=== PATIENT | male | born 1975 | race Hispanic/Latino ===

== ENCOUNTER 2019-09-09 03:34 | Emergency (ER) | payer SELFPAY ==
[2019-09-09] MEDS ORDERED: NA CHLORIDE 0.9% 1,000 ML ONE (04:31)
[2019-09-09] MEDS ORDERED: MORPHINE 4 MG/ML SYR ONE (04:31)
[2019-09-09] MEDS ORDERED: ONDANSETRON 4 MG/2 ML VIAL ONE (04:31)
[2019-09-09] MEDS ORDERED: FAMOTIDINE 20 MG/2 ML VIAL IV ONE (04:31)
[2019-09-09 04:52] LABS: Absolute Lymphocytes (CBC) 3.1 K/uL (0.7-4.9); Basophils % 1.2 % (0-1.3); Hematocrit 45.4 % (39.6-49.0); Lymphocytes % 30.8 % (15.3-44.8); MPV 7.7 fL (7.6-11.3); RBC Red Blood Cell Count 5.26 M/uL (4.33-5.43)
[2019-09-09 04:58] LABS: Albumin 3.5 g/dL (3.4-5.0); BUN Blood Urea Nitrogen 13 mg/dL (7-18); Bicarbonate 26 mmol/L (21-32); Glucose Level 127 mg/dL (74-106); Lipase 98 U/L (73-393); Sodium Level 139 mmol/L (136-145)
[2019-09-09 05:17] LABS: ALT/SGPT 35 U/L (12-78); AST/SGOT 24 U/L (15-37); Alkaline Phosphatase 61 U/L (45-117); Bilirubin Total 0.5 mg/dL (0.2-1.0); Potassium 3.8 mmol/L (3.5-5.1)
[2019-09-09 05:18] LABS: Bilirubin Direct < 0.1 mg/dL (0-0.2); Protein, Total 7.5 g/dL (6.4-8.2)
[2019-09-09 06:48] LABS: Urine Blood TRACE (NEG); Urine Glucose NEGATIVE (NEG); Urine Protein NEGATIVE (NEG); Urine Specific Gravity 1.025 (1.005-1.030); Urine pH 5.5 (5.0-7.0)
--- NOTE | 2019-09-09 07:30 | ER ---
Nurse's Notes [facility] Name: Dayton Colvin Jr Age: 44 yrs Sex: Male : 1975 Arrival Date: 09/09/2019 Time: 03:37 Bed 6 Private MD: Diagnosis: Cholelithiasis Presentation: 09/08 04:07 Chief complaint: Patient states: WITH HISTORY OF GALL STONES. COMPLAINING OF RUQ PAIN rv STARTED TWO HOURS AGO. 10/10 PAIN SCALE, DESCRIBED SHARP CONTINUOUS PAIN. ALSO COMPLAINING OF BACK PAIN. DENIES NAUSEA AND VOMITING. Coronavirus screen: Proceed with normal triage. Ebola Screen: No symptoms or risks identified at this time. Initial Sepsis Screen: Does the patient meet any 2 criteria? No. Patient's initial sepsis screen is negative. Does the patient have a suspected source of infection? No. Patient's initial sepsis screen is negative. Risk Assessment: Do you want to hurt yourself or someone else? Patient reports no desire to harm self or others. Onset of symptoms was September 09, 2019 at 02:00. 04:07 Method Of Arrival: Ambulatory rv 04:07 Acuity: SOPHIE 3 rv Triage Assessment: 04:09 General: Appears uncomfortable, ill, Behavior is calm, cooperative. Pain: Complains of rv pain in right upper quadrant Pain currently is 10 out of 10 on a pain scale. Quality of pain is described as sharp, Pain began 2 hours ago. Is continuous. EENT: No signs and/or symptoms were reported regarding the EENT system. Neuro: Level of Consciousness is awake, alert, obeys commands, Oriented to person, place, time, situation. Cardiovascular: Patient's skin is warm and dry. Respiratory: Airway is patent Respiratory effort is even, unlabored. GI: Abdomen is round non-distended, Bowel sounds present X 4 quads. Reports upper abdominal pain. Derm: Skin is intact. Historical: - Allergies: 04:09 No Known Allergies; rv - Home Meds: 04:09 None [Active]; rv - PMHx: 04:09 Cholelithiasis; rv - PSHx: 04:09 None; rv - Immunization history:: Adult Immunizations up to date. - Social history:: Smoking status: Patient denies any tobacco usage or history of. - Family history:: not pertinent. Screenin:11 Abuse screen: Denies threats or abuse. Denies injuries from another. Nutritional rv screening: No deficits noted. Tuberculosis screening: No symptoms or risk factors identified. Fall Risk None identified. Assessment: 05:00 Reassessment: Patient and/or family updated on plan of care and expected duration. Pain rv level reassessed. Patient is alert, oriented x 3, equal unlabored respirations, skin warm/dry/pink. Patient denies pain at this time. Patient states feeling better. Patient states symptoms have improved. 05:00 Pain: Denies pain. rv 07:30 Reassessment: Patient and/or family updated on plan of care and expected duration. Pain em level reassessed. Patient is alert, oriented x 3, equal unlabored respirations, skin warm/dry/pink. Patient states feeling better. Patient states symptoms have improved. Vital Signs: 04:05 BP 147 / 88; Pulse 84; Resp 16; Pulse Ox 99% on R/A; mt 05:00 BP 112 / 70; Pulse 99; Resp 16; Pulse Ox 88% on R/A; rv 05:07 Pulse Ox 99% on 2 lpm NC; rv 06:00 BP 127 / 83; Pulse 98; Resp 17; Temp 98; Pulse Ox 99% on R/A; rv 07:30 BP 118 / 76; Pulse 87; Resp 18; Pulse Ox 99% on R/A; em ED Course: 03:37 Patient arrived in ED. cl3 03:41 Brandt Tavares MD is Attending Physician. tera 04:07 Donald Haskins, BENOIT is Primary Nurse. rv 04:09 Triage completed. rv 04:11 Arm band placed on Patient placed in the treatment room, on a stretcher, Patient rv notified of wait time. 04:11 Patient has correct armband on for positive identification. Bed in low position. Call rv light in reach. Pulse ox on. NIBP on. 04:15 Inserted saline lock: 18 gauge in left antecubital area, using aseptic technique. Blood mt collected. 06:18 Chest Single View XRAY In Process Unspecified. EDMS 06:39 No provider procedures requiring assistance completed. rv 06:54 CT Abd/Pelvis - PO and IV Contrast In Process Unspecified. EDMS 07:30 Minor Parker MD is Referral Physician. tera 07:49 IV discontinued, intact, bleeding controlled, No redness/swelling at site. Pressure em dressing applied. Administered Medications: 04:29 Drug: Pepcid 20 mg Route: IVP; Site: left antecubital; rv 05:03 Follow up: Response: No adverse reaction rv 04:29 Drug: morphine 4 mg {Note: RASS 0.} Route: IVP; Site: left antecubital; rv 05:03 Follow up: Response: No adverse reaction; Marked relief of symptoms; Pain is decreased; rv RASS: Light sedation (-2) 04:29 Drug: Zofran (Ondansetron) 4 mg Route: IVP; Site: left antecubital; rv 05:03 Follow up: Response: No adverse reaction rv 04:30 Drug: NS 0.9% 1000 ml Route: IV; Rate: 1 bolus; Site: left antecubital; rv 07:13 Follow up: IV Status: Completed infusion; IV Intake: 1000ml rv 07:47 Drug: Amoxicillin 500 mg Route: PO; em 07:47 Follow up: Response: Medication administered at discharge. em Intake: 07:13 IV: 1000ml; Total: 1000ml. rv Outcome: 07:30 Discharge ordered by . [facility] 07:49 Discharged to home ambulatory. em 07:49 Condition: good 07:49 Discharge instructions given to patient, Instructed on discharge instructions, follow up and referral plans. medication usage, Demonstrated understanding of instructions, follow-up care, medications, Prescriptions given X 2. 07:51 Patient left the ED. em Signatures: Dispatcher [employer] Brandt Barfield MD MD cha Munoz, Edgar, RN RN em Thompson, Moriah mt Vicente, Ronaldo, RN RN Laverne Miller cl3 Corrections: (The following items were deleted from the chart) 04:13 04:07 Chief complaint: Patient states: WITH HISTORY OF GALL STONES. COMPLAINING OF LUQ rv PAIN STARTED TWO HOURS AGO. 10/10 PAIN SCALE, DESCRIBED SHARP CONTINUOUS PAIN. ALSO COMPLAINING OF BACK PAIN. DENIES NAUSEA AND VOMITING. rv
--- NOTE | 2019-09-09 07:31 | EDPHYS ---
Physician Documentation [facility] Name: Dayton Colvin Jr Age: 44 yrs Sex: Male : 1975 Arrival Date: 09/09/2019 Time: 03:37 Bed 6 Private MD: ED Physician Brandt Tavares HPI: 09/08 04:21 This 44 yrs old Male presents to ER via Ambulatory with complaints of Low Back tera Pain. 04:21 The patient presents with pain that is acute, with no known mechanism of injury. tera Historical: - Allergies: 04:09 No Known Allergies; rv - Home Meds: 04:09 None [Active]; rv - PMHx: 04:09 Cholelithiasis; rv - PSHx: 04:09 None; rv - Immunization history:: Adult Immunizations up to date. - Social history:: Smoking status: Patient denies any tobacco usage or history of. - Family history:: not pertinent. ROS: 04:21 Constitutional: Negative for fever, chills, and weight loss, Eyes: Negative for injury, tera pain, redness, and discharge, ENT: Negative for injury, pain, and discharge, Neck: Negative for injury, pain, and swelling, Cardiovascular: Negative for chest pain, palpitations, and edema, Respiratory: Negative for shortness of breath, cough, wheezing, and pleuritic chest pain, Back: Negative for injury and pain, : Negative for injury, bleeding, discharge, and swelling, MS/Extremity: Negative for injury and deformity, Skin: Negative for injury, rash, and discoloration, Neuro: Negative for headache, weakness, numbness, tingling, and seizure, Psych: Negative for depression, anxiety, suicide ideation, homicidal ideation, and hallucinations, Allergy/Immunology: Negative for hives, rash, and allergies, Endocrine: Negative for neck swelling, polydipsia, polyuria, polyphagia, and marked weight changes, Hematologic/Lymphatic: Negative for swollen nodes, abnormal bleeding, and unusual bruising. 04:21 Abdomen/GI: Positive for abdominal pain, of the epigastric area and right upper quadrant. Exam: 04:21 Constitutional: This is a well developed, well nourished patient who is awake, alert, tera and in no acute distress. Head/Face: Normocephalic, atraumatic. Eyes: Pupils equal round and reactive to light, extra-ocular motions intact. Lids and lashes normal. Conjunctiva and sclera are non-icteric and not injected. Cornea within normal limits. Periorbital areas with no swelling, redness, or edema. ENT: Nares patent. No nasal discharge, no septal abnormalities noted. Tympanic membranes are normal and external auditory canals are clear. Oropharynx with no redness, swelling, or masses, exudates, or evidence of obstruction, uvula midline. Mucous membranes moist. Neck: Trachea midline, no thyromegaly or masses palpated, and no cervical lymphadenopathy. Supple, full range of motion without nuchal rigidity, or vertebral point tenderness. No Meningismus. Chest/axilla: Normal chest wall appearance and motion. Nontender with no deformity. No lesions are appreciated. Cardiovascular: Regular rate and rhythm with a normal S1 and S2. No gallops, murmurs, or rubs. Normal PMI, no JVD. No pulse deficits. Respiratory: Lungs have equal breath sounds bilaterally, clear to auscultation and percussion. No rales, rhonchi or wheezes noted. No increased work of breathing, no retractions or nasal flaring. Back: No spinal tenderness. No costovertebral tenderness. Full range of motion. Male : Normal genitalia with no discharge or lesions. Skin: Warm, dry with normal turgor. Normal color with no rashes, no lesions, and no evidence of cellulitis. MS/ Extremity: Pulses equal, no cyanosis. Neurovascular intact. Full, normal range of motion. Neuro: Awake and alert, GCS 15, oriented to person, place, time, and situation. Cranial nerves II-XII grossly intact. Motor strength 5/5 in all extremities. Sensory grossly intact. Cerebellar exam normal. Normal gait. Psych: Awake, alert, with orientation to person, place and time. Behavior, mood, and affect are within normal limits. 04:21 Abdomen/GI: Inspection: abdomen appears normal, Bowel sounds: normal, Palpation: moderate abdominal tenderness, in the epigastric area and right upper quadrant, Liver: is firm, Hernia: not appreciated. Vital Signs: 04:05 BP 147 / 88; Pulse 84; Resp 16; Pulse Ox 99% on R/A; mt 05:00 BP 112 / 70; Pulse 99; Resp 16; Pulse Ox 88% on R/A; rv 05:07 Pulse Ox 99% on 2 lpm NC; rv 06:00 BP 127 / 83; Pulse 98; Resp 17; Temp 98; Pulse Ox 99% on R/A; rv 07:30 BP 118 / 76; Pulse 87; Resp 18; Pulse Ox 99% on R/A; em MDM: 04:12 [facility] 04[facility]22 Data reviewed: vital signs, nurses notes, lab test result(s), radiologic studies, CT tera scan, plain films. 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 rate is 84 beats/min, rhythm is normal sinus rhythm, Pulse oximetry: on room air is 99 %. Test interpretation: by ED physician or midlevel provider: plain radiologic studies. Counseling: I had a detailed discussion with the patient and/or guardian regarding: the historical points, exam findings, and any diagnostic results supporting the discharge/admit diagnosis, lab results, radiology results. Medication response: Zofran markedly relieved the patient's nausea. 07:15 Differential diagnosis: Cholelithiasis Obesity cholecystitis, Cholelithiasis, tera diverticulitis, gastritis, gastroesophageal reflux disease, non-specific abd pain, pancreatitis, Peptic Ulcer Disease. Response to treatment: the patient's symptoms have markedly improved after treatment, patient is well hydrated. Awaiting: CT scan results, waiting for read to cross over. 07:26 ED course: pain improved, ct no evidence of acute cholecystitis, labs normal, dw dr tera evans, will follow up, pt understands. 09/08 04:11 Order name: Basic Metabolic Panel; Complete Time: 05:51 09/08 04:11 Order name: CBC with Diff; Complete Time: 05:51 09/08 04:11 Order name: Hepatic Function; Complete Time: 05:51 09/08 04:11 Order name: Lipase; Complete Time: 05:51 09/08 04:21 Order name: Chest Single View XRAY [facility] 09/08 06:33 Order name: Urine Dipstick--Ancillary (enter results); Complete Time: 07:14 ar5 09/08 04:11 Order name: IV Saline Lock; Complete Time: 04:14 09/08 04:11 Order name: Labs collected and sent; Complete Time: 04:14 09/08 04:21 Order name: CT Abd/Pelvis - PO and IV Contrast [facility] 09/08 06:25 Order name: Urine Dipstick-Ancillary (obtain specimen); Complete Time: 06:30 [facility] Administered Medications: 04:29 Drug: Pepcid 20 mg Route: IVP; Site: left antecubital; rv 05:03 Follow up: Response: No adverse reaction rv 04:29 Drug: morphine 4 mg {Note: RASS 0.} Route: IVP; Site: left antecubital; rv 05:03 Follow up: Response: No adverse reaction; Marked relief of symptoms; Pain is decreased; rv RASS: Light sedation (-2) 04:29 Drug: Zofran (Ondansetron) 4 mg Route: IVP; Site: left antecubital; rv 05:03 Follow up: Response: No adverse reaction rv 04:30 Drug: NS 0.9% 1000 ml Route: IV; Rate: 1 bolus; Site: left antecubital; rv 07:13 Follow up: IV Status: Completed infusion; IV Intake: 1000ml rv 07:47 Drug: Amoxicillin 500 mg Route: PO; em 07:47 Follow up: Response: Medication administered at discharge. em Disposition: 09/09/19 07:30 Discharged to Home. Impression: Cholelithiasis. - Condition is Stable. - Discharge Instructions: Biliary Colic, Adult, Fat and Cholesterol Restricted Diet, Cholelithiasis, Cholelithiasis, [id number]. - Prescriptions for Amoxicillin 500 mg Oral Capsule - take 1 capsule by ORAL route every 8 hours for 10 days; 30 tablet. Bentyl 20 mg Oral Tablet - take 1 tablet by ORAL route every 6 hours As needed; 20 tablet. - Medication Reconciliation Form, Thank You Letter, Antibiotic Education, Prescription Opioid Use form. - Follow up: Minor Evans MD; When: 2 - 3 days; Reason: Recheck today's complaints, Continuance of care, Re-evaluation by your physician. - Problem is new. - Symptoms have improved. Signatures: Dispatcher [employer] Brandt Barfield MD MD cha Munoz, Edgar, RN RN Donald May RN RN rv Corrections: (The following items were deleted from the chart) 07:51 07:30 09/09/2019 07:30 Discharged to Home. Impression: Cholelithiasis. Condition is em Stable. Forms are Medication Reconciliation Form, Thank You Letter, Antibiotic Education, Prescription Opioid Use. Follow up: Minor Evans; When: 2 - 3 days; Reason: Recheck today's complaints, Continuance of care, Re-evaluation by your physician. Problem is new. Symptoms have improved. tera
[2019-09-09] MEDS ORDERED: AMOXICILLIN TRIHYDR 250 MG CAP ONE (07:44)
[2019-09-09 08:01] VITALS: O2SAT 99
[2019-09-09 08:02] VITALS: TEMP 98
[2019-09-09 08:03] VITALS: BP 118/76
--- NOTE | 2019-09-09 12:23 | RAD REPORT ---
EXAM DESCRIPTION: RAD - Chest Single View - 09/09/2019 6:18 am CLINICAL HISTORY: ABDOMINAL DISTENTION Chest pain. COMPARISON: CHEST SINGLE VIEW dated 04/13/2013 FINDINGS: Portable technique limits examination quality. The lungs are grossly clear. The heart is normal in size. No displaced fractures. IMPRESSION: No acute intrathoracic process suspected.
--- NOTE | 2019-09-09 15:57 | RAD REPORT ---
EXAM DESCRIPTION: CT Abdomen and Pelvis With Intravenous Contrast CLINICAL HISTORY: The patient is 44 years old and is Male; ABD PAIN TECHNIQUE: Axial computed tomography images of the abdomen and pelvis with intravenous contrast. S agittal and coronal reformatted images were created and reviewed. This CT exam was performed using one or more of the following dose reduction techniques: automated exposure control, adjustment of t he mA and/or kV according to patient size, and/or use of iterative reconstruction technique. COMPARISON: No relevant prior studies available. FINDINGS: Lung bases: Unremarkable. No mass. No consolidation. ABDOMEN: Liver: Enlarged fatty liver. Gallbladder and bile ducts: Gallbladder is distended with multiple cholesterol stones, including in the neck. No ductal dilation. Pancreas: No findings to suggest acute pancreatitis. No mass visualized. No ductal dilation. Spleen: Unremarkable. No splenomegaly. Adrenals: Unremarkable. No mass. Kidneys and ureters: Lobulated left kidney with focal cortical scarring in the midpole. No solid renal lesion. No hydronephrosis or ureter stone. Stomach and bowel: No bowel dilatation or obstruction. No bowel wall thickening. Stomach is unremarkable. PELVIS: Appendix: The visualized appendix is normal. No pericecal inflammation to suggest acute appendic itis. Bladder: Unremarkable. No mass. Reproductive: Unremarkable as visualized. ABDOMEN and PELVIS: Intraperitoneal space: Unremarkable. No free air. No significant fluid collection. Bones/joints: No acute fracture identified. No dislocation. Soft tissues: Unremarkable. Vasculature: Unremarkable. No abdominal aortic aneurysm. Lymph nodes: No pathologically enlarged lymph nodes. IMPRESSION: 1. Distended gallbladder with cholelithiasis, including stones in the neck. 2. Enlarged fatty liver. 3. Normal appendix. Electronically signed by: Arabella Zaidi MD 09/09/2019 6:58 AM CDT Due to temporary technical issues with the PACS/Fluency reporting system, reports are being signed by the in house radiologist as a courtesy to ensure prompt reporting. The interpreting radiologist is f ully responsible for the content of the report.
== END 2019-09-09 07:51 | disposition home or self-care (01) ==
LOC: ER 03:34
DX: K80.20 Calculus of gallbladder without cholecystitis without obstruction (principal)
CPT/HCPCS: 36415; 71045; 74177; 80048; 80076; 81003; 83690; 85025; 96361; 96374; 96375; 99284; J2405; J7030; Q9967